=== PATIENT | male | born 1985 ===

== ENCOUNTER 2021-02-14 12:16 | Observation (INO) | payer SELFPAY ==
--- NOTE | 2021-02-14 15:12 | Event Note ---
ED Screening Note Date of service: 02/14/21 Time: 15:11 ED Screening Note: 35-year-old male patient with family history of diabetes presents to the emergency department with complaints of dizziness, excessive thirst, and frequent urination for 1 week. He has never been diagnosed with diabetes. Tachycardic in triage. Fingerstick glucose is 598. General: Awake, appropriately interactive, no acute distress. Neck: Supple. Full range of motion intact. Cardiovascular: Normal peripheral perfusion. Pulmonary: No respiratory distress. Patient is speaking normally without use of accessory muscles. Skin: No apparent rashes or lesions. Neurological: No facial asymmetry. Speech is clear. Follows commands. Patient is alert and oriented. Musculoskeletal: Moves all four extremities spontaneously with normal range of motion. Psych: Cooperative. Appropriate mood and affect. I have greeted and performed a focused rapid initial assessment of this patient. A comprehensive ED assessment and evaluation of the patient, analysis of all test results, and completion of the medical decision-making process will be conducted by additional ED providers. This initial assessment/diagnostic orders/clinical plan/treatment(s) is/are subject to change based on patients health status, clinical progression and re-assessment. Further treatment and workup at subsequent clinical provider's discretion. Patient/guardian urged not to elope from the ED as their condition may be serious if not clinically assessed and managed.
[2021-02-14 15:20] LABS: Basophils # (Auto) 0.1 K/mm3 (0.0-0.1); Basophils % (Auto) 0.7 % (0.0-1.8); Eosinophils # (Auto) 0.3 K/mm3 (0.0-0.4); Eosinophils % (Auto) 3.4 % (0.0-4.3); Hematocrit 46.7 % (35.5-45.6); Hemoglobin 16.5 gm/dl (11.8-15.2); Lymphocytes # (Auto) 3.2 K/mm3 (1.2-5.4); Lymphocytes % (Auto) 42.7 % (13.4-35.0); Mean Corpuscular HGB Conc 35 % (32-34); Mean Corpuscular Volume 79 fl (84-94); Monocytes # (Auto) 0.6 K/mm3 (0.0-0.8); Monocytes % (Auto) 8.2 % (0.0-7.3); Platelet Count 363 K/mm3 (140-440); Red Blood Count 5.91 M/mm3 (3.65-5.03); Red Cell Distribution Width 14.2 % (13.2-15.2)
[2021-02-14 15:36] LABS: Albumin 4.7 g/dL (3.9-5); BUN/Creatinine Ratio 15; Blood Urea Nitrogen 17 mg/dL (9-20); Calcium 10.1 mg/dL (8.4-10.2); Hemolysis Index 22
[2021-02-14 15:52] LABS: Alanine Aminotransferase < 5 units/L (7-56)
[2021-02-14 15:55] LABS: Bilirubin,Urine NEG (Negative); Blood,Urine NEG (Negative); Color,Urine Colorless (Yellow); Mucus,Urine FEW /HPF; Protein,Urine <15 mg/dL mg/dL (Negative); Urobilinogen,Urine < 2.0 mg/dL (<2.0); WBC,Urine < 1.0 /HPF (0.0-6.0)
[2021-02-14] MEDS ORDERED: LACTATED RINGERS 1,000 ML IV ONE ×3 (16:12→16:13)
--- NOTE | 2021-02-14 16:23 | Emergency Department Report ---
HPI - General Chief Complaint: Hyperglycemia Time Seen by Provider: 02/14/21 16:08 - HPI HPI: 35-year-old male with no known past medical history presents complaining of approximately 1 week of frequent urination, dry mouth/feelings of being dehydrated, and dizziness/lightheadedness. The patient states that his mother has diabetes and that he suspected that he may have diabetes as well. Nothing has been done to try to treat his symptoms. He says that right now he does not feel dizzy but feels slightly "foggy". He says he has a very mild global h eadache which he has had for the past week. Other than the symptoms he is not experienced any visual changes, neck stiffness/pain, fever/chills, chest pain, cough, shortness of breath, abdominal pain, nausea/vomiting, focal weakness, sensory changes, gait disturbance, or any other complaints. ED Past Medical Hx - Past Medical History Previous Medical History?: No Hx Asthma: Yes - Surgical History Past Surgical History?: No - Family History Family history: diabetes (Mother) ED Review of Systems ROS: Stated complaint: DIZZNESS,LIGHT HEADED,DEHYDRATED Other details as noted in HPI Constitutional: denies: chills, fever Eyes: denies: eye pain, vision change ENT: denies: throat pain, congestion Respiratory: denies: cough, shortness of breath Cardiovascular: denies: chest pain, palpitations Endocrine: increased thirst, increased urine Gastrointestinal: denies: abdominal pain, nausea, vomiting Genitourinary: frequency. denies: dysuria Musculoskeletal: denies: back pain, joint swelling Skin: denies: rash Neurological: headache (mild). denies: numbness, paresthesias, confusion Physical Exam - Physical Exam Vital Signs: Vital Signs 02/14/21 13:08 Temperature 98.6 F Pulse Rate 109 H Respiratory 20 Rate Blood Pressure 140/96 [Right] O2 Sat by Pulse 96 Oximetry Physical Exam: GENERAL: Well developed and well nourished. No acute distress HEENT: Normocephalic. No obvious signs of trauma. Dry mucous membranes. EYES: Extraocular movements are intact. Pupils are equal round and reactive to light bilaterally NECK: Supple. Trachea is midline. LUNGS: Nonlabored breathing. Equal chest rise bilaterally. Clear to auscultation bilaterally. HEART/CARDIOVASCULAR: Regular rate and rhythm. No murmurs or rubs. VASCULAR: 2+ peripheral pulses. Cap refill < 2 seconds ABDOMEN: Abdomen is soft and nondistended. There is no significant tenderness, guarding or rebound. SKIN: Skin is warm and dry NEURO: Patient is awake, alert, and oriented. nib inspector II-XII grossly intact. No focal deficits. Normal motor and sensory exam throughout. Normal speech. Normal gait. MUSCULOSKELETAL: No obvious deformities. No significant tenderness. Normal ROM throughout. ED Course Vital Signs 02/14/21 13:08 Temperature 98.6 F Pulse Rate 109 H Respiratory 20 Rate Blood Pressure 140/96 [Right] O2 Sat by Pulse 96 Oximetry ED Medical Decision Making - Lab Data Result diagrams: 02/14/21 14:55 02/14/21 14:55 Laboratory Results - last 24 hr 02/14/21 02/14/21 02/14/21 13:07 14:55 14:55 WBC 7.6 RBC 5.91 H Hgb 16.5 H Hct 46.7 H MCV 79 L MCH 28 MCHC 35 H RDW 14.2 Plt Count 363 Lymph % (Auto) 42.7 H [place] % (Auto) 8.2 H Eos % (Auto) 3.4 Baso % (Auto) 0.7 Lymph # (Auto) 3.2 [place] # (Auto) 0.6 Eos # (Auto) 0.3 Baso # (Auto) 0.1 Seg Neutrophils % 45.0 Seg Neutrophils # 3.4 VBG pH Sodium 123 L Potassium 4.6 Chloride 86.3 L Carbon Dioxide 20 L Anion Gap 21 BUN 17 Creatinine 1.1 Estimated GFR > 60 BUN/Creatinine Ratio 15 Glucose 651 H* POC Glucose 598 H Osmolality Calcium 10.1 Magnesium 2.30 Total Bilirubin 0.50 AST < 5 L ALT < 5 L Alkaline Phosphatase 94 Total Protein 9.0 H Albumin 4.7 Albumin/Globulin Ratio 1.1 Urine Color Urine Turbidity Urine pH Ur Specific [place] Urine Protein Urine Glucose (UA) Urine Ketones Urine Blood Urine Nitrite Urine Bilirubin Urine Urobilinogen Ur Leukocyte Esterase Urine WBC (Auto) Urine RBC (Auto) Urine Mucus 02/14/21 02/14/21 02/14/21 14:55 15:36 16:19 WBC RBC Hgb Hct MCV MCH MCHC RDW Plt Count Lymph % (Auto) [place] % (Auto) Eos % (Auto) Baso % (Auto) Lymph # (Auto) [place] # (Auto) Eos # (Auto) Baso # (Auto) Seg Neutrophils % Seg Neutrophils # VBG pH 7.366 Sodium Potassium Chloride Carbon Dioxide Anion Gap BUN Creatinine Estimated GFR BUN/Creatinine Ratio Glucose POC Glucose Osmolality 313 Calcium Magnesium Total Bilirubin AST ALT Alkaline Phosphatase Total Protein Albumin Albumin/Globulin Ratio Urine Color Colorless Urine Turbidity Clear Urine pH 5.0 Ur Specific [place] 1.027 Urine Protein <15 mg/dl Urine Glucose (UA) >=500 Urine Ketones Tr Urine Blood Neg Urine Nitrite Neg Urine Bilirubin Neg Urine Urobilinogen < 2.0 Ur Leukocyte Esterase Neg Urine WBC (Auto) < 1.0 Urine RBC (Auto) 2.0 Urine Mucus Few - EKG Data -: EKG Interpreted by Me - EKG Data 02/14/21 18:21 Normal sinus rhythm. Normal axis. Normal intervals. No ectopy. No significant ST segment or T wave abnormalities. - Radiology Data CHEST 1 VIEW 02/14/2021 3:49 PM INDICATION / CLINICAL INFORMATION: hyperglycemia. COMPARISON: None available. FINDINGS: SUPPORT DEVICES: None. HEART / MEDIASTINUM: No significant abnormality. LUNGS / PLEURA: No significant pul monary or pleural abnormality. No pneumothorax. ADDITIONAL FINDINGS: No significant additional findings. IMPRESSION: No acute abnormality. Signer Name: Pablo Hagen MD Signed: 02/14/2021 3:51 PM Workstation Name: [id number] - Medical Decision Making 35-year-old male with family history of diabetes but with no personal medical history presents complaining of 1 week of increased urination and thirst as well as dizziness/lightheadedness and a mild headache. The patient suspected that he may have diabetes. On initial presentation he is noted to be afebrile with normal vital signs with the exception of mildly elevated heart rate of 109. He is noted to have a blood glucose level of 598 via fingerstick. Labs were drawn in triage and have returned, revealing several serious abnormalities, namely hyponatremia with sodium level of 123 and elevated glucose of 651 with no anion gap and bicarbonate level of 20. Given the lack of an anion gap and mild acidosis, presentation is most consistent with hyperosmolar hyperglycemia, in which case the sodium likely represents pseudohyponatremia. There is no leukocytosis. Hemoglobin is elevated at 16.5 consistent with hemoconcentration due to fluid deficit. Although the patient reports mild headache and dizziness, he has a completely nonfocal neurologic exam and the remainder of his physical exam is unremarkable. We will send serum osmolarity level and obtain an EKG and chest x-ray. Will give 3 L of LR now and plan to admit for further management. I reviewed assessment at 5:30 PM, the patient is resting comfortably in bed. His heart rates improved to the 90s. IV fluids are running. Will administer 10 units of regular insulin IV based on his stated weight of 130 kg for a dose of ~0.1U/kg as a bolus. Will check accucheck ~30 mins after. Immediately after assessing the patient I spoke with Dr. Sandhu regarding admission and he states that he will assume care of the patient. Critical Care Time: Yes (35 minutes) Critical care time in (mins) excluding proc time.: 35 Critical care attestation.: If time is entered above; I have spent that time in minutes in the direct care of this critically ill patient, excluding procedure time. Critical care time was spent in the assessment and management of hyperosmolar hyperglycemic state ED Disposition Clinical Impression: Hyperosmolar hyperglycemic state (HHS), Hyponatremia, Dehydration Disposition: OP ADMIT IP TO THIS HOSP Is pt being admited?: Yes Condition: Serious
--- NOTE | 2021-02-14 16:55 | XRay Report ---
CHEST 1 VIEW 02/14/2021 3:49 PM INDICATION / CLINICAL INFORMATION: hyperglycemia. COMPARISON: None available. FINDINGS: SUPPORT DEVICES: None. HEART / MEDIASTINUM: No significant abnormality. LUNGS / PLEURA: No significant pulmonary or pleural abnormality. No pneumothorax. ADDITIONAL FINDINGS: No significant additional findings. IMPRESSION: No acute abnormality. Signer Name: Pablo Hagen MD Signed: 02/14/2021 4:51 PM Workstation Name: [id number]
[2021-02-14] MEDS ORDERED: INSULIN REGULAR, HUMAN 100 UNITS/1 ML IV ONE (17:40)
[2021-02-14] MEDS ORDERED: ACETAMINOPHEN 325 MG TAB PO PRN (20:32)
[2021-02-14] MEDS ORDERED: ONDANSETRON 4 MG/2 ML INJ IV PRN (20:32)
--- NOTE | 2021-02-14 20:32 | History and Physical Report ---
History of Present Illness Date of examination: 02/14/21 Date of admission: 02/14/21 17:23 Medications and Allergies Allergies Allergy/AdvReac Type Severity Reaction Status Date / Time No Known Allergies Allergy Unverified 02/14/21 13:01 Exam - Constitutional Vitals: Temp Pulse Resp BP Pulse Ox 98.3 F 83 18 135/90 97 02/14/21 19:29 02/14/21 19:29 02/14/21 19:29 02/14/21 19:29 02/14/21 19:29 Results - Labs CBC & Chem 7: 02/14/21 14:55 02/14/21 14:55 Labs: Laboratory Last Values WBC 7.6 K/mm3 (4.5-11.0) 02/14/21 14:55 RBC 5.91 M/mm3 (3.65-5.03) H 02/14/21 14:55 Hgb 16.5 gm/dl (11.8-15.2) H 02/14/21 14:55 Hct 46.7 % (35.5-45.6) H 02/14/21 14:55 MCV 79 fl (84-94) L 02/14/21 14:55 MCH 28 pg (28-32) 02/14/21 14:55 MCHC 35 % (32-34) H 02/14/21 14:55 RDW 14.2 % (13.2-15.2) 02/14/21 14:55 Plt Count 363 K/mm3 (140-440) 02/14/21 14:55 Lymph % (Auto) 42.7 % (13.4-35.0) H 02/14/21 14:55 [place] % (Auto) 8.2 % (0.0-7.3) H 02/14/21 14:55 Eos % (Auto) 3.4 % (0.0-4.3) 02/14/21 14:55 Baso % (Auto) 0.7 % (0.0-1.8) 02/14/21 14:55 Lymph # (Auto) 3.2 K/mm3 (1.2-5.4) 02/14/21 14:55 [place] # (Auto) 0.6 K/mm3 (0.0-0.8) 02/14/21 14:55 Eos # (Auto) 0.3 K/mm3 (0.0-0.4) 02/14/21 14:55 Baso # (Auto) 0.1 K/mm3 (0.0-0.1) 02/14/21 14:55 Seg Neutrophils % 45.0 % (40.0-70.0) 02/14/21 14:55 Seg Neutrophils # 3.4 K/mm3 (1.8-7.7) 02/14/21 14:55 VBG pH 7.366 (7.320-7.420) 02/14/21 14:55 Sodium 123 mmol/L (137-145) L 02/14/21 14:55 Potassium 4.6 mmol/L (3.6-5.0) 02/14/21 14:55 Chloride 86.3 mmol/L (98-107) L 02/14/21 14:55 Carbon Dioxide 20 mmol/L (22-30) L 02/14/21 14:55 Anion Gap 21 mmol/L 02/14/21 14:55 BUN 17 mg/dL (9-20) 02/14/21 14:55 Creatinine 1.1 mg/dL (0.8-1.3) 02/14/21 14:55 Estimated GFR > 60 ml/min 02/14/21 14:55 BUN/Creatinine Ratio 15 % 02/14/21 14:55 Glucose 651 mg/dL (75-100) H* 02/14/21 14:55 POC Glucose 407 mg/dL (70-105) H 02/14/21 19:21 Osmolality 313 Mosm/kg 02/14/21 16:19 Calcium 10.1 mg/dL (8.4-10.2) 02/14/21 14:55 Magnesium 2.30 mg/dL (1.7-2.3) 02/14/21 14:55 Total Bilirubin 0.50 mg/dL (0.1-1.2) 02/14/21 14:55 AST < 5 units/L (5-40) L 02/14/21 14:55 ALT < 5 units/L (7-56) L 02/14/21 14:55 Alkaline Phosphatase 94 units/L (35-129) 02/14/21 14:55 Total Protein 9.0 g/dL (6.3-8.2) H 02/14/21 14:55 Albumin 4.7 g/dL (3.9-5) 02/14/21 14:55 Albumin/Globulin Ratio 1.1 % 02/14/21 14:55 Urine Color Colorless (Yellow) 02/14/21 15:36 Urine Turbidity Clear (Clear) 02/14/21 15:36 Urine pH 5.0 (5.0-7.0) 02/14/21 15:36 Ur Specific [place] 1.027 (1.003-1.030) 02/14/21 15:36 Urine Protein <15 mg/dl mg/dL (Negative) 02/14/21 15:36 Urine Glucose (UA) >=500 mg/dL (Negative) 02/14/21 15:36 Urine Ketones Tr mg/dL (Negative) 02/14/21 15:36 Urine Blood Neg (Negative) 02/14/21 15:36 Urine Nitrite Neg (Negative) 02/14/21 15:36 Urine Bilirubin Neg (Negative) 02/14/21 15:36 Urine Urobilinogen < 2.0 mg/dL (<2.0) 02/14/21 15:36 Ur Leukocyte Esterase Neg (Negative) 02/14/21 15:36 Urine WBC (Auto) < 1.0 /HPF (0.0-6.0) 02/14/21 15:36 Urine RBC (Auto) 2.0 /HPF (0.0-6.0) 02/14/21 15:36 Urine Mucus Few /HPF 02/14/21 15:36
[2021-02-14] MEDS ORDERED: MORPHINE 2 MG/1 ML INJ IV PRN (20:37)
[2021-02-14] MEDS ORDERED: METOCLOPRAMIDE 10 MG/2 ML INJ IV PRN (20:37)
[2021-02-14] MEDS ORDERED: oxyCODONE /ACETAMINOPHEN 5-325MG TAB PO PRN (20:37)
[2021-02-14] MEDS ORDERED: HYDROmorphone 1 MG/1 ML INJ IV PRN (20:37)
[2021-02-14] MEDS ORDERED: FAMOTIDINE 20 MG/2 ML INJ IV SCH (22:00)
[2021-02-14] MEDS: INSULIN NPH/REGULAR 70/30 INJ SUB-Q SCH (22:45)
[2021-02-14] MEDS: INSULIN LISPRO 100 UNIT/ML SUB-Q SCH (22:45)
[2021-02-14] MEDS: SODIUM CHLORIDE 0.9% 1000 ML 1,000 ML IV SCH (22:46)
--- NOTE | 2021-02-15 00:49 | History and Physical Report ---
History of Present Illness Date of examination: 02/14/21 Date of admission: 02/14/21 17:23 Chief complaint: Generalized weakness, increased urination and increased thirst for 1 week History of present illness: 35-year-old male with no known past medical history presents complaining of approximately 1 week of frequent urination, dry mouth/feelings of being dehydra hany, and dizziness/lightheadedness. The patient states that his mother has diabetes and that he suspected that he may have diabetes as well. Nothing has been done to try to treat his symptoms. He says that right now he does not feel dizzy but feels slightly "foggy". He says he has a very mild global headache which he has had for the past week. Other than the symptoms he is not experienced any visual changes, neck stiffness/pain, fever/chills, chest pain, cough, shortness of breath, abdominal pain, nausea/vomiting, focal weakness, sensory changes, gait disturbance, or any other complaints. - Past Medical History Previous Medical History?: No Hx Asthma: Yes - Surgical History Past Surgical History?: No - Family History Family history: diabetes (Mother) Review of Systems ROS: Stated complaint: DIZZNESS,LIGHT HEADED,DEHYDRATED Other details as noted in HPI Constitutional: denies: chills, fever Eyes: denies: eye pain, vision change ENT: denies: throat pain, congestion Respiratory: denies: cough, shortness of breath Cardiovascular: denies: chest pain, palpitations Endocrine: increased thirst, increased urine Gastrointestinal: denies: abdominal pain, nausea, vomiting Genitourinary: frequency. denies: dysuria Musculoskeletal: denies: back pain, joint swelling Skin: denies: rash Neurological: headache (mild). denies: numbness, paresthesias, confusion Medications and Allergies Allergies Allergy/AdvReac Type Severity Reaction Status Date / Time No Known Allergies Allergy Unverified 02/14/21 13:01 Active Meds: Active Medications Acetaminophen (Acetaminophen 325 Mg Tab) 650 mg PO Q4H PRN PRN Reason: Pain MILD(1-3)/Fever >100.5/DENISE Famotidine (Famotidine 20 Mg/2 Ml Inj) 20 mg IV BID CRYSTAL Last Admin: 02/14/21 22:45 Dose: 20 mg Documented by: Hydromorphone HCl (Hydromorphone 1 Mg/1 Ml Inj) 0.5 mg IV Q3H PRN PRN Reason: Pain , Severe (7-10) Sodium Chloride (Nacl 0.9% 1000 Ml) 1,000 mls @ 125 mls/hr IV DIRECT [facility] Last Admin: 02/14/21 22:46 Dose: 125 mls/hr Documented by: Insulin Human Isoph/Insulin Regular (Insulin Nph/Regular 70/30 Inj) 20 unit SUB-Q BIDDIAB [facility] Last Admin: 02/14/21 22:45 Dose: 20 unit Documented by: Insulin Human Lispro (Insulin Lispro 100 Unit/Ml) 0 unit SUB-Q Q4HR [facility]; Protocol Last Admin: 02/14/21 22:45 Dose: 10 unit Documented by: Metoclopramide HCl (Metoclopramide 10 Mg/2 Ml Inj) 10 mg IV Q6H PRN PRN Reason: Nausea And Vomiting Morphine Sulfate (Morphine 2 Mg/1 Ml Inj) 2 mg IV Q4H PRN PRN Reason: Pain, Moderate (4-6) Ondansetron HCl (Ondansetron 4 Mg/2 Ml Inj) 4 mg IV Q3H PRN PRN Reason: Nausea And Vomiting Oxycodone/Acetaminophen (Oxycodone /Acetaminophen 5-325mg Tab) 1 tab PO Q6H PRN PRN Reason: Pain, Moderate (4-6) Sodium Chloride (Sodium Chloride 0.9% 10 Ml Flush Syringe) 10 ml IV BID [facility] Last Admin: 02/14/21 22:45 Dose: 10 ml Documented by: Sodium Chloride (Sodium Chloride 0.9% 10 Ml Flush Syringe) 10 ml IV PRN PRN PRN Reason: LINE FLUSH Exam - Constitutional Vitals: Temp Pulse Resp BP Pulse Ox 97.4 F L 81 16 124/81 96 02/14/21 21:13 02/14/21 21:13 02/14/21 21:13 02/14/21 21:13 02/14/21 21:13 General appearance: Present: no acute distress, well-nourished - EENT Eyes: Present: PERRL ENT: hearing intact, clear oral mucosa - Neck Neck: Present: supple, normal ROM - Respiratory Respiratory effort: normal Respiratory: bilateral: CTA - Cardiovascular Heart Sounds: Present: S1 & S2. Absent: rub, click - Extremities Extremities: pulses symmetrical, No edema Peripheral Pulses: within normal limits - Abdominal General gastrointestinal: Present: soft, non-tender, non-distended, normal bowel sounds Male genitourinary: Present: normal - Integumentary Integumentary: Present: clear, warm, dry - Musculoskeletal Musculoskeletal: gait normal, strength equal bilaterally - Psychiatric Psychiatric: appropriate mood/affect, intact judgment & insight - Neurologic Neurologic: CNII-XII intact, moves all extremities Results - Labs CBC & Chem 7: 02/14/21 14:55 02/14/21 14:55 Labs: Laboratory Last Values WBC 7.6 K/mm3 (4.5-11.0) 02/14/21 14:55 RBC 5.91 M/mm3 (3.65-5.03) H 02/14/21 14:55 Hgb 16.5 gm/dl (11.8-15.2) H 02/14/21 14:55 Hct 46.7 % (35.5-45.6) H 02/14/21 14:55 MCV 79 fl (84-94) L 02/14/21 14:55 MCH 28 pg (28-32) 02/14/21 14:55 MCHC 35 % (32-34) H 02/14/21 14:55 RDW 14.2 % (13.2-15.2) 02/14/21 14:55 Plt Count 363 K/mm3 (140-440) 02/14/21 14:55 Lymph % (Auto) 42.7 % (13.4-35.0) H 02/14/21 14:55 [place] % (Auto) 8.2 % (0.0-7.3) H 02/14/21 14:55 Eos % (Auto) 3.4 % (0.0-4.3) 02/14/21 14:55 Baso % (Auto) 0.7 % (0.0-1.8) 02/14/21 14:55 Lymph # (Auto) 3.2 K/mm3 (1.2-5.4) 02/14/21 14:55 [place] # (Auto) 0.6 K/mm3 (0.0-0.8) 02/14/21 14:55 Eos # (Auto) 0.3 K/mm3 (0.0-0.4) 02/14/21 14:55 Baso # (Auto) 0.1 K/mm3 (0.0-0.1) 02/14/21 14:55 Seg Neutrophils % 45.0 % (40.0-70.0) 02/14/21 14:55 Seg Neutrophils # 3.4 K/mm3 (1.8-7.7) 02/14/21 14:55 VBG pH 7.366 (7.320-7.420) 02/14/21 14:55 Sodium 123 mmol/L (137-145) L 02/14/21 14:55 Potassium 4.6 mmol/L (3.6-5.0) 02/14/21 14:55 Chloride 86.3 mmol/L (98-107) L 02/14/21 14:55 Carbon Dioxide 20 mmol/L (22-30) L 02/14/21 14:55 Anion Gap 21 mmol/L 02/14/21 14:55 BUN 17 mg/dL (9-20) 02/14/21 14:55 Creatinine 1.1 mg/dL (0.8-1.3) 02/14/21 14:55 Estimated GFR > 60 ml/min 02/14/21 14:55 BUN/Creatinine Ratio 15 % 02/14/21 14:55 Glucose 651 mg/dL (75-100) H* 02/14/21 14:55 POC Glucose 407 mg/dL (70-105) H 02/14/21 19:21 Osmolality 313 Mosm/kg 02/14/21 16:19 Calcium 10.1 mg/dL (8.4-10.2) 02/14/21 14:55 Magnesium 2.30 mg/dL (1.7-2.3) 02/14/21 14:55 Total Bilirubin 0.50 mg/dL (0.1-1.2) 02/14/21 14:55 AST < 5 units/L (5-40) L 02/14/21 14:55 ALT < 5 units/L (7-56) L 02/14/21 14:55 Alkaline Phosphatase 94 units/L (35-129) 02/14/21 14:55 Total Protein 9.0 g/dL (6.3-8.2) H 02/14/21 14:55 Albumin 4.7 g/dL (3.9-5) 02/14/21 14:55 Albumin/Globulin Ratio 1.1 % 02/14/21 14:55 Urine Color Colorless (Yellow) 02/14/21 15:36 Urine Turbidity Clear (Clear) 02/14/21 15:36 Urine pH 5.0 (5.0-7.0) 02/14/21 15:36 Ur Specific [place] 1.027 (1.003-1.030) 02/14/21 15:36 Urine Protein <15 mg/dl mg/dL (Negative) 02/14/21 15:36 Urine Glucose (UA) >=500 mg/dL (Negative) 02/14/21 15:36 Urine Ketones Tr mg/dL (Negative) 02/14/21 15:36 Urine Blood Neg (Negative) 02/14/21 15:36 Urine Nitrite Neg (Negative) 02/14/21 15:36 Urine Bilirubin Neg (Negative) 02/14/21 15:36 Urine Urobilinogen < 2.0 mg/dL (<2.0) 02/14/21 15:36 Ur Leukocyte Esterase Neg (Negative) 02/14/21 15:36 Urine WBC (Auto) < 1.0 /HPF (0.0-6.0) 02/14/21 15:36 Urine RBC (Auto) 2.0 /HPF (0.0-6.0) 02/14/21 15:36 Urine Mucus Few /HPF 02/14/21 15:36 Short CBC 02/14/21 Range/Units 14:55 WBC 7.6 (4.5-11.0) K/mm3 Hgb 16.5 H (11.8-15.2) gm/dl Hct 46.7 H (35.5-45.6) % Plt Count 363 (140-440) K/mm3 BMP 02/14/21 14:55 Sodium 123 L Potassium 4.6 Chloride 86.3 L Carbon Dioxide 20 L BUN 17 Creatinine 1.1 Glucose 651 H* Calcium 10.1 Liver Function 02/14/21 Range/Units 14:55 Total Bilirubin 0.50 (0.1-1.2) mg/dL AST < 5 L (5-40) units/L ALT < 5 L (7-56) units/L Alkaline Phosphatase 94 (35-129) units/L Albumin 4.7 (3.9-5) g/dL Urine 02/14/21 Range/Units 15:36 Urine Color Colorless (Yellow) Urine pH 5.0 (5.0-7.0) Ur Specific [place] 1.027 (1.003-1.030) Urine Protein <15 mg/dl (Negative) mg/dL Urine Glucose (UA) >=500 (Negative) mg/dL Assessment and Plan Advance Directives: Yes (Full code) VTE prophylaxis?: Chemical Plan of care discussed with patient/family: Yes - Patient Problems (1) Hyperosmolar non-ketotic state in patient with type 2 diabetes mellitus Current Visit: Yes Status: Acute Plan to address problem: Patient started on Accu-Cheks every 4 hours and high-dose sliding scale coverage. Patient also started on insulin 70/30 20 units twice a day. Monitor electrolytes (2) Asthma Current Visit: Yes Status: Chronic Qualifiers: Asthma severity: moderate Plan to address problem: Continue inhalers-Proventil HFA 2 puffs 4 times daily as needed (3) Dehydration Current Visit: Yes Status: Acute Plan to address problem: Secondary to new onset diabetes and high blood glucose levels (4) DVT prophylaxis Current Visit: Yes Status: Acute Plan to address problem: On heparin and GI prophylaxis
[2021-02-15] MEDS: INSULIN LISPRO 100 UNIT/ML SUB-Q SCH ×6 (02:00→22:20)
[2021-02-15] MEDS: SODIUM CHLORIDE 0.9% 1000 ML 1,000 ML IV SCH ×2 (06:18→17:08)
[2021-02-15 06:33] LABS: Basophils % (Auto) 0.4 % (0.0-1.8); Eosinophils # (Auto) 0.3 K/mm3 (0.0-0.4); Eosinophils % (Auto) 4.2 % (0.0-4.3); Hematocrit 40.7 % (35.5-45.6); Hemoglobin 14.4 gm/dl (11.8-15.2); Lymphocytes % (Auto) 49.3 % (13.4-35.0); Mean Corpuscular HGB Conc 36 % (32-34); Mean Corpuscular Volume 78 fl (84-94); Monocytes # (Auto) 0.6 K/mm3 (0.0-0.8); Monocytes % (Auto) 9.7 % (0.0-7.3); Platelet Count 292 K/mm3 (140-440); Red Cell Distribution Width 14.2 % (13.2-15.2)
[2021-02-15 06:51] LABS: Alanine Aminotransferase 56 units/L (7-56); Albumin 4.2 g/dL (3.9-5); BUN/Creatinine Ratio 15; Blood Urea Nitrogen 12 mg/dL (9-20); Calcium 9.3 mg/dL (8.4-10.2); Hemolysis Index 3
[2021-02-15] MEDS: INSULIN NPH/REGULAR 70/30 INJ SUB-Q SCH ×2 (08:41→17:09)
[2021-02-15] MEDS: FAMOTIDINE 20 MG TAB PO SCH ×2 (10:27→22:19)
--- NOTE | 2021-02-15 15:18 | Progress Note ---
Assessment and Plan - Patient Problems (1) Hyperosmolar non-ketotic state in patient with type 2 diabetes mellitus Current Visit: Yes Status: Acute Plan to address problem: BG levels are manageable No IV insulin drip Frequent accucheks q4h and High dose s/s coverage Also started on Novolin 70/30 20 units Bid Diabetes education IV Fluids for now (2) Metabolic acidosis Current Visit: Yes Status: Acute Plan to address problem: Mild Can be admittted to Telemetry No need for IMCU (3) Dehydration Current Visit: Yes Status: Acute Plan to address problem: IV Fluids for now (4) Asthma Current Visit: Yes Status: Chronic Qualifiers: Asthma severity: moderate Plan to address problem: Neb treatments prn (5) Hyponatremia Current Visit: Yes Status: Acute Plan to address problem: Should correct with correction of BG levels IV NS for now (6) Morbid obesity with BMI of 45.0-49.9, adult Current Visit: Yes Status: Chronic Plan to address problem: Counselled about loosing weight and f/u with Bariatric surgery as outpatient (7) DVT prophylaxis Current Visit: Yes Status: Acute Plan to address problem: On Heparin and GI prophylaxis Subjective Date of service: 02/15/21 Principal diagnosis: Hyperosmolar Hyperglycemic non ketotic state in DM Interval history: 35-year-old male with no known past medical history presents complaining of approximately 1 week of frequent urination, dry mouth/feelings of being dehydrated, and dizziness/lightheadedness. The patient states that his mother has diabetes and that he suspected that he may have diabetes as well. Nothing has been done to try to treat his symptoms. He says that right now he does not feel dizzy but feels slightly "foggy". He says he has a very mild global headache which he has had for the past week. Other than the symptoms he is not experienced any visual changes, neck stiffness/pain, fever/chills, chest pain, cough, shortness of breath, abdominal pain, nausea/vomiting, focal weakness, se nsory changes, gait disturbance, or any other complaints. 02/15 Symptomatically better Possible discharge tomorrow Knpws how to use Insulin syringe Will discharge on Kdimnfx19/30 and Metformin 500 mg po Bid Objective - Constitutional Vitals: Vital Signs - 12hr 02/15/21 02/15/21 06:51 10:00 Pulse Rate 76 Respiratory 18 Rate General appearance: Present: no acute distress, well-nourished - EENT Eyes: PERRL, EOM intact ENT: hearing intact, clear oral mucosa Ears: bilateral: normal - Neck Neck: supple, normal ROM - Respiratory Respiratory effort: normal Respiratory: bilateral: CTA - Breasts Breasts: normal - Cardiovascular Heart rate: 70 Rhythm: regular Heart Sounds: Present: S1 & S2. Absent: gallop, rub Extremities: pulses intact, No edema, normal color, Full ROM - Gastrointestinal General gastrointestinal: Present: soft, non-tender, non-distended, normal bowel sounds - Genitourinary Male genitourinary: normal - Integumentary Integumentary: clear, warm, dry - Musculoskeletal Musculoskeletal: 1, strength equal bilaterally - Neurologic Neurologic: moves all extremities - Psychiatric Psychiatric: memory intact, appropriate mood/affect, intact judgment & insight - Labs CBC & Chem 7: 02/15/21 05:22 02/15/21 05:22 Labs: Abnormal lab results 02/14/21 02/14/21 02/14/21 Range/Units 13:07 14:55 14:55 RBC 5.91 H (3.65-5.03) M/mm3 Hgb 16.5 H (11.8-15.2) gm/dl Hct 46.7 H (35.5-45.6) % MCV 79 L (84-94) fl MCHC 35 H (32-34) % Lymph % (Auto) 42.7 H (13.4-35.0) % [place] % (Auto) 8.2 H (0.0-7.3) % Seg Neutrophils % (40.0-70.0) % Sodium 123 L (137-145) mmol/L Chloride 86.3 L (98-107) mmol/L Carbon Dioxide 20 L (22-30) mmol/L Glucose 651 H* (75-100) mg/dL POC Glucose 598 H (70-105) mg/dL Hemoglobin A1c (4-6) % AST < 5 L (5-40) units/L ALT < 5 L (7-56) units/L Total Protein 9.0 H (6.3-8.2) g/dL 02/14/21 02/14/21 02/14/21 Range/Units 17:59 19:21 22:01 RBC (3.65-5.03) M/mm3 Hgb (11.8-15.2) gm/dl Hct (35.5-45.6) % MCV (84-94) fl MCHC (32-34) % Lymph % (Auto) (13.4-35.0) % [place] % (Auto) (0.0-7.3) % Seg Neutrophils % (40.0-70.0) % Sodium (137-145) mmol/L Chloride (98-107) mmol/L Carbon Dioxide (22-30) mmol/L Glucose (75-100) mg/dL POC Glucose 541 H 407 H 389 H (70-105) mg/dL Hemoglobin A1c (4-6) % AST (5-40) units/L ALT (7-56) units/L Total Protein (6.3-8.2) g/dL 02/15/21 02/15/21 02/15/21 Range/Units 01:33 05:22 05:22 RBC 5.20 H (3.65-5.03) M/mm3 Hgb (11.8-15.2) gm/dl Hct (35.5-45.6) % MCV 78 L (84-94) fl MCHC 36 H (32-34) % Lymph % (Auto) 49.3 H (13.4-35.0) % [place] % (Auto) 9.7 H (0.0-7.3) % Seg Neutrophils % 36.4 L (40.0-70.0) % Sodium 133 L D (137-145) mmol/L Chloride 97.2 L (98-107) mmol/L Carbon Dioxide (22-30) mmol/L Glucose 301 H (75-100) mg/dL POC Glucose 303 H (70-105) mg/dL Hemoglobin A1c (4-6) % AST 41 H (5-40) units/L ALT (7-56) units/L Total Protein (6.3-8.2) g/dL 02/15/21 02/15/21 02/15/21 Range/Units 05:22 05:54 08:24 RBC (3.65-5.03) M/mm3 Hgb (11.8-15.2) gm/dl Hct (35.5-45.6) % MCV (84-94) fl MCHC (32-34) % Lymph % (Auto) (13.4-35.0) % [place] % (Auto) (0.0-7.3) % Seg Neutrophils % (40.0-70.0) % Sodium (137-145) mmol/L Chloride (98-107) mmol/L Carbon Dioxide (22-30) mmol/L Glucose (75-100) mg/dL POC Glucose 307 H 261 H (70-105) mg/dL Hemoglobin A1c 11.2 H (4-6) % AST (5-40) units/L ALT (7-56) units/L Total Protein (6.3-8.2) g/dL 02/15/21 Range/Units 10:14 RBC (3.65-5.03) M/mm3 Hgb (11.8-15.2) gm/dl Hct (35.5-45.6) % MCV (84-94) fl MCHC (32-34) % Lymph % (Auto) (13.4-35.0) % [place] % (Auto) (0.0-7.3) % Seg Neutrophils % (40.0-70.0) % Sodium (137-145) mmol/L Chloride (98-107) mmol/L Carbon Dioxide (22-30) mmol/L Glucose (75-100) mg/dL POC Glucose 345 H (70-105) mg/dL Hemoglobin A1c (4-6) % AST (5-40) units/L ALT (7-56) units/L Total Protein (6.3-8.2) g/dL
[2021-02-15] MEDS ORDERED: INSULIN LISPRO 100 UNIT/ML SUB-Q SCH (15:30)
[2021-02-16] MEDS: SODIUM CHLORIDE 0.9% 1000 ML 1,000 ML IV SCH (06:03)
--- NOTE | 2021-02-16 06:40 | History and Physical Report ---
History of Present Illness Date of examination: 02/14/21 Date of admission: 02/14/21 17:23 Chief complaint: Polyuria polyphagia and polydipsia History of present illness: 35-year-old male with no known past medical history presents complaining of approximately 1 week of frequent urination, dry mouth/feelings of being dehydrated, and dizziness/lightheadedness. The patient states that his mother has diabetes and that he suspected that he may have diabetes as well. Nothing has been done to try to treat his symptoms. He says that right now he does not feel dizzy but feels slightly "foggy". He says he has a very mild global headache which he has had for the past week. Other than the symptoms he is not experienced any visual changes, neck stiffness/pain, fever/chills, chest pain, cough, shortness of breath, abdominal pain, nausea/vomiting, focal weakness, sensory changes, gait disturbance, or any other complaints. - Past Medical History Previous Medical History?: No --Asthma: Yes - Surgical History Past Surgical History?: No - Family History Family history: diabetes (Mother) -Social History No smoking or alcohol Review of Systems ROS: Stated complaint: DIZZNESS,LIGHT HEADED,DEHYDRATED Other details as noted in HPI Constitutional: denies: chills, fever Eyes: denies: eye pain, vision change ENT: denies: throat pain, congestion Respiratory: denies: cough, shortness of breath Cardiovascular: denies: chest pain, palpitations Endocrine: increased thirst, increased urine Gastrointestinal: denies: abdominal pain, nausea, vomiting Genitourinary: frequency. denies: dysuria Musculoskeletal: denies: back pain, joint swelling Skin: denies: rash Neurological: headache (mild). denies: numbness, paresthesias, confusion Medications and Allergies Allergies Allergy/AdvReac Type Severity Reaction Status Date / Time No Known Allergies Allergy Unverified 02/14/21 13:01 Active Meds: Active Medications Acetaminophen (Acetaminophen 325 Mg Tab) 650 mg PO Q4H PRN PRN Reason: Pain MILD(1-3)/Fever >100.5/DENISE Famotidine (Famotidine 20 Mg Tab) 20 mg PO BID CRYSTAL Last Admin: 02/15/21 22:19 Dose: 20 mg Documented by: Hydromorphone HCl (Hydromorphone 1 Mg/1 Ml Inj) 0.5 mg IV Q3H PRN PRN Reason: Pain , Severe (7-10) Sodium Chloride (Nacl 0.9% 1000 Ml) 1,000 mls @ 125 mls/hr IV DIRECT [facility] Last Admin: 02/16/21 06:03 Dose: 125 mls/hr Documented by: Insulin Human Isoph/Insulin Regular (Insulin Nph/Regular 70/30 Inj) 20 unit SUB-Q BIDDIAB [facility] Last Admin: 02/15/21 17:09 Dose: 20 unit Documented by: Insulin Human Lispro (Insulin Lispro 100 Unit/Ml) 0 unit SUB-Q Q4HR [facility]; Protocol Last Admin: 02/15/21 22:20 Dose: 8 unit Documented by: Metoclopramide HCl (Metoclopramide 10 Mg/2 Ml Inj) 10 mg IV Q6H PRN PRN Reason: Nausea And Vomiting Morphine Sulfate (Morphine 2 Mg/1 Ml Inj) 2 mg IV Q4H PRN PRN Reason: Pain, Moderate (4-6) Ondansetron HCl (Ondansetron 4 Mg/2 Ml Inj) 4 mg IV Q3H PRN PRN Reason: Nausea And Vomiting Oxycodone/Acetaminophen (Oxycodone /Acetaminophen 5-325mg Tab) 1 tab PO Q6H PRN PRN Reason: Pain, Moderate (4-6) Sodium Chloride (Sodium Chloride 0.9% 10 Ml Flush Syringe) 10 ml IV BID [facility] Last Admin: 02/15/21 22:20 Dose: 10 ml Documented by: Sodium Chloride (Sodium Chloride 0.9% 10 Ml Flush Syringe) 10 ml IV PRN PRN PRN Reason: LINE FLUSH Exam - Constitutional Vitals: Temp Pulse Resp BP Pulse Ox 97.8 F 79 18 134/67 94 02/16/21 02:52 02/16/21 02:52 02/16/21 02:52 02/16/21 02:52 02/16/21 02:52 General appearance: Present: no acute distress, well-nourished - EENT Eyes: Present: PERRL ENT: hearing intact, clear oral mucosa - Neck Neck: Present: supple, normal ROM - Respiratory Respiratory effort: normal Respiratory: bilateral: CTA - Cardiovascular Heart rate: 78 Rhythm: regular Heart Sounds: Present: S1 & S2. Absent: rub, click - Extremities Extremities: pulses symmetrical, No edema Peripheral Pulses: within normal limits - Abdominal General gastrointestinal: Present: soft, non-tender, non-distended, normal bowel sounds Male genitourinary: Present: normal - Integumentary Integumentary: Present: clear, warm, dry - Musculoskeletal Musculoskeletal: gait normal, strength equal bilaterally - Psychiatric Psychiatric: appropriate mood/affect, intact judgment & insight - Neurologic Neurologic: CNII-XII intact, moves all extremities Results - Labs CBC & Chem 7: 02/15/21 05:22 02/15/21 05:22 Labs: Laboratory Last Values WBC 6.0 K/mm3 (4.5-11.0) 02/15/21 05:22 RBC 5.20 M/mm3 (3.65-5.03) H 02/15/21 05:22 Hgb 14.4 gm/dl (11.8-15.2) 02/15/21 05:22 Hct 40.7 % (35.5-45.6) D 02/15/21 05:22 MCV 78 fl (84-94) L 02/15/21 05:22 MCH 28 pg (28-32) 02/15/21 05:22 MCHC 36 % (32-34) H 02/15/21 05:22 RDW 14.2 % (13.2-15.2) 02/15/21 05:22 Plt Count 292 K/mm3 (140-440) 02/15/21 05:22 Lymph % (Auto) 49.3 % (13.4-35.0) H 02/15/21 05:22 [place] % (Auto) 9.7 % (0.0-7.3) H 02/15/21 05:22 Eos % (Auto) 4.2 % (0.0-4.3) 02/15/21 05:22 Baso % (Auto) 0.4 % (0.0-1.8) 02/15/21 05:22 Lymph # (Auto) 3.0 K/mm3 (1.2-5.4) 02/15/21 05:22 [place] # (Auto) 0.6 K/mm3 (0.0-0.8) 02/15/21 05:22 Eos # (Auto) 0.3 K/mm3 (0.0-0.4) 02/15/21 05:22 Baso # (Auto) 0.0 K/mm3 (0.0-0.1) 02/15/21 05:22 Seg Neutrophils % 36.4 % (40.0-70.0) L 02/15/21 05:22 Seg Neutrophils # 2.2 K/mm3 (1.8-7.7) 02/15/21 05:22 VBG pH 7.366 (7.320-7.420) 02/14/21 14:55 Sodium 133 mmol/L (137-145) L D 02/15/21 05:22 Potassium 3.8 mmol/L (3.6-5.0) 02/15/21 05:22 Chloride 97.2 mmol/L (98-107) L 02/15/21 05:22 Carbon Dioxide 26 mmol/L (22-30) 02/15/21 05:22 Anion Gap 14 mmol/L 02/15/21 05:22 BUN 12 mg/dL (9-20) 02/15/21 05:22 Creatinine 0.8 mg/dL (0.8-1.3) 02/15/21 05:22 Estimated GFR > 60 ml/min 02/15/21 05:22 BUN/Creatinine Ratio 15 % 02/15/21 05:22 Glucose 301 mg/dL (75-100) H 02/15/21 05:22 POC Glucose 324 mg/dL (70-105) H 02/15/21 20:23 Hemoglobin A1c 11.2 % (4-6) H 02/15/21 05:22 Osmolality 313 Mosm/kg 02/14/21 16:19 Calcium 9.3 mg/dL (8.4-10.2) 02/15/21 05:22 Magnesium 2.30 mg/dL (1.7-2.3) 02/14/21 14:55 Total Bilirubin 0.80 mg/dL (0.1-1.2) 02/15/21 05:22 AST 41 units/L (5-40) H 02/15/21 05:22 ALT 56 units/L (7-56) 02/15/21 05:22 Alkaline Phosphatase 59 units/L (35-129) 02/15/21 05:22 Total Protein 7.6 g/dL (6.3-8.2) 02/15/21 05:22 Albumin 4.2 g/dL (3.9-5) 02/15/21 05:22 Albumin/Globulin Ratio 1.2 % 02/15/21 05:22 Urine Color Colorless (Yellow) 02/14/21 15:36 Urine Turbidity Clear (Clear) 02/14/21 15:36 Urine pH 5.0 (5.0-7.0) 02/14/21 15:36 Ur Specific [place] 1.027 (1.003-1.030) 02/14/21 15:36 Urine Protein <15 mg/dl mg/dL (Negative) 02/14/21 15:36 Urine Glucose (UA) >=500 mg/dL (Negative) 02/14/21 15:36 Urine Ketones Tr mg/dL (Negative) 02/14/21 15:36 Urine Blood Neg (Negative) 02/14/21 15:36 Urine Nitrite Neg (Negative) 02/14/21 15:36 Urine Bilirubin Neg (Negative) 02/14/21 15:36 Urine Urobilinogen < 2.0 mg/dL (<2.0) 02/14/21 15:36 Ur Leukocyte Esterase Neg (Negative) 02/14/21 15:36 Urine WBC (Auto) < 1.0 /HPF (0.0-6.0) 02/14/21 15:36 Urine RBC (Auto) 2.0 /HPF (0.0-6.0) 02/14/21 15:36 Urine Mucus Few /HPF 02/14/21 15:36 BMP 02/15/21 05:22 Sodium 133 L D Potassium 3.8 Chloride 97.2 L Carbon Dioxide 26 BUN 12 Creatinine 0.8 Glucose 301 H Calcium 9.3 Liver Function 02/15/21 Range/Units 05:22 Total Bilirubin 0.80 (0.1-1.2) mg/dL AST 41 H (5-40) units/L ALT 56 (7-56) units/L Alkaline Phosphatase 59 (35-129) units/L Albumin 4.2 (3.9-5) g/dL [place]/IV: Voiding Method Toilet Assessment and Plan Advance Directives: Yes (Full code) - Patient Problems (1) Hyperosmolar non-ketotic state in patient with type 2 diabetes mellitus Current Visit: Yes Status: Acute Plan to address problem: BG levels are manageable No IV insulin drip Frequent accucheks q4h and High dose s/s coverage Also started on Novolin 70/30 20 units Bid Diabetes education IV Fluids for now (2) Metabolic acidosis Current Visit: Yes Status: Acute Plan to address problem: Mild Can be admittted to Telemetry No need for IMCU (3) Asthma Current Visit: Yes Status: Chronic Qualifiers: Asthma severity: moderate Plan to address problem: Neb treatments prn (4) Dehydration Current Visit: Yes Status: Acute Plan to address problem: IV Fluids for now (5) Morbid obesity with BMI of 45.0-49.9, adult Current Visit: Yes Status: Chronic Plan to address problem: Counselled about loosing weight and f/u with Bariatric surgery as outpatient (6) DVT prophylaxis Current Visit: Yes Status: Acute Plan to address problem: On Heparin and GI prophylaxis
[2021-02-16] MEDS ORDERED: metFORMIN 500 MG TAB PO SCH (08:00)
[2021-02-16] MEDS ORDERED: INSULIN NPH/REGULAR 70/30 INJ SUB-Q SCH (08:00)
--- NOTE | 2021-02-16 08:14 | Discharge Summary ---
Providers - Providers Date of Admission: 02/14/21 17:23 Date of discharge: 02/16/21 Attending physician: MONTRELL VICTOR Primary care physician: ENROBING MACHINE OPERATOR Hospitalization Reason for admission: HONK/hyperglycemia Condition: Serious Hospital course: 35-year-old male with no known past medical history presents complaining of approximately 1 week of frequent urination, dry mouth/feelings of being dehydrated, and dizziness/lightheadedness. The patient was admitted with diagnosis of new onset diabetes mellitus and HONK/hyperglycemia. The patient had initial BG of 598 but did not require IV insulin. Patient was initially started on 70/30 insulin at 20 units which has now increased to 25 units prior to discharge. Patient also has been started on Glucophage. Patient also received aggressive IV fluid hydration. Blood sugars have stabilized and patient is felt to receive maximal hospital benefit for discharge. Patient received diabetic education patient is to discharge home and follow-up with primary care physician. Dedicated discharge 35 minutes Disposition: DC-01 TO HOME OR SELFCARE Final Discharge Diagnosis (Prints w/discharge instructions): New onset DM, HONK Core Measure Documentation - Palliative Care Palliative Care/ Comfort Measures: Not Applicable - Core Measures Any of the following diagnoses?: none Exam - Constitutional Vitals: Temp Pulse Resp BP Pulse Ox 97.8 F 79 18 134/67 94 02/16/21 02:52 02/16/21 02:52 02/16/21 02:52 02/16/21 02:52 02/16/21 02:52 General appearance: Present: no acute distress, well-nourished - EENT Eyes: Present: PERRL ENT: hearing intact, clear oral mucosa - Neck Neck: Present: supple, normal ROM - Respiratory Respiratory effort: normal Respiratory: bilateral: CTA - Cardiovascular Heart Sounds: Present: S1 & S2. Absent: rub, click - Extremities Extremities: pulses symmetrical, No edema Peripheral Pulses: within normal limits - Abdominal General gastrointestinal: Present: soft, non-tender, non-distended, normal bowel sounds Male genitourinary: Present: normal - Integumentary Integumentary: Present: clear, warm, dry - Musculoskeletal Musculoskeletal: gait normal, strength equal bilaterally - Psychiatric Psychiatric: appropriate mood/affect, intact judgment & insight - Neurologic Neurologic: CNII-XII intact, moves all extremities Plan Activity: advance as tolerated Weight Bearing Status: Weight Bear as Tolerated Diet: diabetic Follow up with: PRIMARY CARE, [Primary Care Provider] - 3-5 Days SIMA DEWITT MD [Staff Physician] - 7 Days Prescriptions: metFORMIN [Glucophage] 500 mg PO BIDDIAB #60 tablet Insulin NPH/Regular [NovoLIN 70/30] 25 unit SUB-Q BIDDIAB 30 Days units oxyCODONE /ACETAMINOPHEN [Percocet 5/325 mg] 1 tab PO Q6H PRN #8 tablet PRN Reason: Pain, Moderate (4-6)
[2021-02-16 08:39] VITALS: BP 142/88
[2021-02-16] MEDS: INSULIN LISPRO 100 UNIT/ML SUB-Q SCH (09:28)
[2021-02-16] MEDS: FAMOTIDINE 20 MG TAB PO SCH (09:31)
--- NOTE | 2021-02-24 10:34 | Electrocardiograph Report ---
[facility] Test Date: 2021-02-14 Test Time: 18:12:15 Pat Name: CIERA BISWAS Department: Room: A466 1 Gender: M Race Steward: KENY : 1985 Requested By: CARMEN COBURN Order Number: [id number] Reading MD: Barbara Parker Measurements Intervals [place] Rate: 86 P: 26 NV: 183 QRS: 27 QRSD: 106 T: -29 QT: 376 QTc: 449 Interpretive Statements Sinus rhythm Borderline T abnormalities, diffuse leads No previous ECG available for comparison Electronically Signed On 02-24-2021 10:34:31 EDT by Barbara Parker
== END 2021-02-16 09:32 | disposition home or self-care (01) ==
LOC: ED 12:16 → 4A 17:23
PROVIDERS: ADMIT Internal Medicine; ATTEND Hospitalist
DX: E11.00 Type 2 diabetes mellitus with hyperosmolarity without nonketotic hyperglycemic-hyperosmolar coma (NKHHC) (principal); E87.2 Acidosis; J45.909 Unspecified asthma, uncomplicated; E86.0 Dehydration; E87.1 Hypo-osmolality and hyponatremia; E66.01 Morbid (severe) obesity due to excess calories; Z68.42 Body mass index [BMI] 45.0-49.9, adult; Z79.4 Long term (current) use of insulin
CPT/HCPCS: 36415; 71045; 80053; 81001; 82805; 82962; 83036; 83735; 83930; 85025; 93005; 96361; 96372; 96374; 96375; 99291; G0378; J7030; J7120; J1815